=== PATIENT | female | born 1995 | race Caucasian/White ===

== ENCOUNTER 2017-06-13 23:11 | Emergency (ER) | payer MEDICAID, BC ==
[~2017-06-13] VITALS: Ht 167.6 cm; Wt 65.8 kg
--- NOTE | 2017-06-13 23:41 | NUR ---
Pt to room, c/o 1 episode of vomiting s/p taking 30 ml of phenergan with codeine. Pt also c/o intermittent numbness and tingling to hands. Pt resting in position of comfort for self, resp even and unlabored. No obvious signs of distress at this time. Awaiting further eval.
[2017-06-13] MEDS ORDERED: ONDANSETRON ODT 4 MG TAB.RAPDIS SL ONE (23:45)
[2017-06-13] MEDS ORDERED: ONDANSETRON ODT 4 MG TAB.RAPDIS ONE (23:56)
--- NOTE | 2017-06-14 00:05 | NUR ---
Pt seen by MD. KENYON given to and reviewed with pt by Dr. Kiran. Pt verbalized understanding of dc instructions. Pt ambulated out of er with steady gait and ride home.
[2017-06-14 00:09] VITALS: BP 119/56
== END 2017-06-14 00:10 | disposition home or self-care (01) ==
LOC: ER 23:12
DX: H61.22 Impacted cerumen, left ear (principal); R11.2 Nausea with vomiting, unspecified
CPT/HCPCS: 99283; A4663; Q0162